=== PATIENT | female | born 2000 | race Hispanic/Latino ===

== ENCOUNTER → 2023-08-08 12:27 | Outpatient (CLI) | payer OTHER, SELFPAY ==
[2023-08-08 13:41] LABS: HCG Quantitative /Beta subunit 512.1 mIU/mL
== END ==
PROVIDERS: Referring Provider Student in an Organized Health Care Education/Training Program; Visit Provider Student in an Organized Health Care Education/Training Program
DX: O20.9 Hemorrhage in early pregnancy, unspecified (principal)
CPT/HCPCS: 36415; 84702

== ENCOUNTER → 2023-08-10 12:25 | Outpatient (CLI) | payer OTHER, SELFPAY ==
[2023-08-10 20:04] LABS: HCG Quantitative /Beta subunit 248.4 mIU/mL
== END ==
PROVIDERS: PCP Student in an Organized Health Care Education/Training Program; Referring Provider Student in an Organized Health Care Education/Training Program; Visit Provider Student in an Organized Health Care Education/Training Program
DX: O03.9 Complete or unspecified spontaneous abortion without complication (principal)
CPT/HCPCS: 36415; 84702

== ENCOUNTER → 2023-10-25 15:37 | Outpatient (CLI) | payer OTHER, SELFPAY ==
[2023-10-25 17:06] LABS: Add Manual Diff / Slide Review NO; Basophils Absolute Auto 0 /uL (0-100); Basophils Percent Auto 0.2 % (0-2); Eosinophils Absolute Auto 100 /uL (0-450); Eosinophils Percent Auto 1.7 % (2-4); Hematocrit 38.6 % (36-46); Hemoglobin 12.9 g/dL (12.0-16.0); Lymphocytes Absolute Auto 1700 /uL (1100-4500); Lymphocytes Percent Auto 19.8 % (25-40); Mean Corpuscular HGB Conc 33.3 % (30-36); Mean Corpuscular Volume 83.8 fL (80-100); Monocytes Absolute Auto 800 /uL (0-900); Monocytes Percent Auto 8.7 % (3-14); Neutrophils Absolute Auto 6100 /uL (1500-7000); Neutrophils Percent Auto 69.6 % (50-75); Platelet Count 283 X10^3/uL (150-400); Red Blood Cell Count 4.61 X10^6/uL (4.0-5.2); Red Cell Distribution Width 14.3 % (11.6-14.8); White Blood Cell Count 8.7 X10^3/uL (4.5-11.0)
[2023-10-26 17:42] LABS: Hepatitis B Surface Antigen NEGATIVE s/c (NEGATIVE); Rubella Antibody IgG 83.2 IU/mL (>15)
[2023-10-26 18:08] LABS: HIV 1 & 2 Ab/Ag 4th Gen Combo NEGATIVE (NEGATIVE); Hep C Virus Ab w/Reflex Quant NEGATIVE s/c (NEGATIVE)
[2023-10-27 03:26] LABS: RPR Screen Non Reactive (Non Reactive)
[2023-10-27 09:17] LABS: Varicella IgG Antibody 354 index (Immune >165)
== END ==
PROVIDERS: Referring Provider Student in an Organized Health Care Education/Training Program; Visit Provider Student in an Organized Health Care Education/Training Program
DX: Z34.80 Encounter for supervision of other normal pregnancy, unspecified trimester (principal)
CPT/HCPCS: 36415; 80055; 86787; 86803; 86850; 86900; 86901; 87086; 87389

== ENCOUNTER → 2023-12-21 11:57 | Outpatient (CLI) | payer OTHER, SELFPAY ==
[2023-12-23 20:47] LABS: AFP Value 42.4 ng/mL (.); Gest Age on Col Date 19.1 weeks (.); Insulin Dep Diabetes No (.); OSBR Risk 1IN 10000 (.); Results Report (.); Test Results *Screen Negative* (.)
== END ==
PROVIDERS: Referring Provider Student in an Organized Health Care Education/Training Program; Visit Provider Student in an Organized Health Care Education/Training Program
DX: Z34.02 Encounter for supervision of normal first pregnancy, second trimester (principal); Z3A.19 19 weeks gestation of pregnancy
CPT/HCPCS: 36415; 82105

== ENCOUNTER → 2024-01-01 12:16 | Outpatient (CLI) | payer OTHER, SELFPAY ==
--- NOTE | 2024-01-01 12:16 | DI.US.S_ITS ---
PROCEDURE: US OB >= 14 WEEKS FETUS INDICATIONS: 20 week anatomy OUTSIDE/PRIOR DATING DATA: Last menstrual period (LMP): 08/09/2023. LMP-based estimated date of delivery (JACKY): 05/15/2024. First dating scan (date and location): 10/25/2023. Estimated date of delivery (JACKY) from first dating scan: 05/22/2024. The calculations are made using the clinical JACKY of 05/15/2024. TECHNIQUE: Real-time scanning was performed of the fetus, with image documentation and biometric measurements. Endovaginal scanning: Not performed COMPARISON: [facility] [place], , OB <= 14 WEEKS FETUS, 10/25/2023, 15:21. FINDINGS: General: A single living intrauterine gestation is present. Presentation: Vertex. Placenta: Placental position is anterior , without previa. Amniotic fluid index: 13.1 cm, normal range is 5-24 cm. Single deepest vertical pocket is 4.5 cm. heart rate: 147 beats per minute. Maternal cervical canal: 4.0 cm long. Normal lower limit is 2.5 cm. biometrics: Biparietal diameter: 4.6 centimeters, 20 weeks 0 days Head circumference: 17.5 centimeters, 20 weeks 0 days Abdominal circumference: 14.3 centimeters, 19 weeks 5 days Femur length: 3.3 centimeters, 20 weeks 2 days Clinically estimated gestational age: 20 weeks 5 days Composite gestational age from present scan: 20 weeks 0 days Estimated weight and percentile: 322 grams, 12 percent Anatomic survey: Neuro: Ventricles are non-dilated at less than 10 mm. Cisterna magna is normal at 3-11 mm. Cerebellum is normal in size and morphology. Nuchal skin fold: Normal at less than 6 mm between 14-21 weeks gestational age. Face: Nose and lips, facial profile are normal. Spine: No evidence for spina bifida. Heart: 4-chambered heart is present, with normal ventricular outflow tracts. Diaphragm: Diaphragm is intact. Stomach: Left-sided stomach is present. Kidneys: No hydronephrosis. Normal is less than 5 mm in 2nd trimester, less than 7 mm in 3rd trimester. Cord: 3-vessel cord has orthotopic insertion. Bladder: Normal in size. Extremities: All 4 extremities identified. IMPRESSION: 1. Single live intrauterine consistent with 20 weeks and 0 days. 2. Normal anatomic survey. We strive to produce accurate, complete, and clear reports of imaging services. To assist us in improving patient care, this report was composed using standard report templates and voice recognition software. Therefore, it may contain abnormal punctuation, insertions and/or omissions. Occasional wrong-word or sound-alike substitutions may occur. Though we review the report and make efforts to correct it, we do recommend that the report be read carefully in proper context to recognize any text inaccuracies. Dictated by: Praneeth Colorado M.D. on 01/01/2024 at 15:07 Approved by: Praneeth Colorado M.D. on 01/01/2024 at 15:10
== END ==
PROVIDERS: Referring Provider Student in an Organized Health Care Education/Training Program; Visit Provider Student in an Organized Health Care Education/Training Program
DX: Z34.82 Encounter for supervision of other normal pregnancy, second trimester (principal); Z3A.20 20 weeks gestation of pregnancy
CPT/HCPCS: 76811

== ENCOUNTER → 2024-02-22 10:49 | Outpatient (CLI) | payer OTHER, SELFPAY ==
[2024-02-22 13:22] LABS: Hemoglobin 11.2 g/dL (12.0-16.0)
[2024-02-22 13:48] LABS: GTT (PREG) 1 Hour PP 50gm Dose 139 mg/dL (76-139)
== END ==
LOC: LAB 10:50
PROVIDERS: Referring Provider Physician Assistant Medical; Visit Provider Physician Assistant Medical
DX: Z34.82 Encounter for supervision of other normal pregnancy, second trimester (principal); Z3A.26 26 weeks gestation of pregnancy
CPT/HCPCS: 82950; 85014; 85018

== ENCOUNTER → 2024-03-25 11:23 | Outpatient (CLI) | payer OTHER, SELFPAY ==
--- NOTE | 2024-03-25 11:24 | DI.US.S_ITS ---
PROCEDURE: US OB FOLLOW UP INDICATIONS: EFW 12%ile on anatomy, follow-up growth OUTSIDE/PRIOR DATING DATA: Last menstrual period (LMP): 08/09/2023. LMP-based estimated date of delivery (JACKY): 05/15/2024 First dating scan (date and location): 10/25/2023 Estimated date of delivery (JACKY) from first dating scan: 05/22/2024 TECHNIQUE: Real-time scanning was performed of the fetus, with image documentation. COMPARISON: [facility], , US OB >= 14 WEEKS FETUS, 01/01/2024, 12:28. , US OB <= 14 WEEKS FETUS, 10/25/2023, 15:21. FINDINGS: A single living intrauterine gestation is present. Presentation: Vertex. Placenta: Placental position is anterior, without previa. Amniotic fluid index: 7.8 cm, normal range is 5-24 cm. Single deepest vertical pocket is 3.3 cm. heart rate: 150 beats per minute. Maternal cervical canal: 4.1 cm long. Normal lower limit is 2.5 cm. Clinically estimated gestational age: 32 weeks 5 days Estimated gestational age from today: 33 weeks 2 days Estimated weight: 2236 g, 69th percentile HC: 8.0 cm 32 weeks 2 days AC: 30.2 cm 33 weeks 4 days AC: 30.6 cm 34 weeks 4 days FL: 6.3 cm 32 weeks 3 days. IMPRESSION: Single live intrauterine with gestational age today 33 weeks 2 days. Dictated by: Omaira Olivares M.D. on 03/25/2024 at 22:49 Approved by: Omaira Olivares M.D. on 03/25/2024 at 22:52
== END ==
PROVIDERS: Referring Provider Student in an Organized Health Care Education/Training Program; Visit Provider Student in an Organized Health Care Education/Training Program
DX: Z3A.33 33 weeks gestation of pregnancy (principal); Z36.2 Encounter for other antenatal screening follow-up
CPT/HCPCS: 76816

== ENCOUNTER → 2024-04-18 10:19 | Outpatient (CLI) | payer OTHER, SELFPAY ==
[2024-04-19 15:47] LABS: Strep Grp B PCR NEG for Grp B Strep
== END ==
PROVIDERS: Referring Provider Student in an Organized Health Care Education/Training Program; Visit Provider Student in an Organized Health Care Education/Training Program
DX: Z36.85 Encounter for antenatal screening for Streptococcus B (principal)
CPT/HCPCS: 87653

== ENCOUNTER 2024-05-17 00:24 | Outpatient (CLI) | payer OTHER, SELFPAY | END 2024-05-17 01:11 | disposition home or self-care (01) | LOC: LABOR 00:33 → OB 05-20 13:03 | PROVIDERS: Referring Provider Family Medicine; Visit Provider Family Medicine | DX: O47.1 False labor at or after 37 completed weeks of gestation (principal); Z3A.40 40 weeks gestation of pregnancy | CPT/HCPCS: 59025; G0378; G0379 ==

== ENCOUNTER 2024-05-17 11:59 | Observation (INO) | payer OTHER, SELFPAY ==
[2024-05-17 12:50] LABS: Creatinine Urine Random 119.27 mg/dL; Protein (Total) Urine Random 25 mg/dL (0-12)
[2024-05-17 13:00] LABS: Add Manual Diff / Slide Review NO; Basophils Absolute Auto 0 /uL (0-100); Basophils Percent Auto 0.2 % (0-2); Eosinophils Absolute Auto 100 /uL (0-450); Eosinophils Percent Auto 1.2 % (2-4); Hematocrit 34.6 % (36-46); Hemoglobin 11.3 g/dL (12.0-16.0); Lymphocytes Absolute Auto 1200 /uL (1100-4500); Lymphocytes Percent Auto 15.3 % (25-40); Mean Corpuscular HGB Conc 32.7 % (30-36); Mean Corpuscular Hemoglobin 26.4 PG (26-34); Mean Corpuscular Volume 80.9 fL (80-100); Monocytes Absolute Auto 800 /uL (0-900); Monocytes Percent Auto 10.4 % (3-14); Neutrophils Absolute Auto 5600 /uL (1500-7000); Neutrophils Percent Auto 72.9 % (50-75); Platelet Count 237 X10^3/uL (150-400); Red Blood Cell Count 4.28 X10^6/uL (4.0-5.2); Red Cell Distribution Width 15.7 % (11.6-14.8); White Blood Cell Count 7.6 X10^3/uL (4.5-11.0)
[2024-05-17 13:15] LABS: Alanine Aminotransferase 21 IU/L (<35); Albumin 3.5 g/dL (3.5-5.0); Albumin Globulin Ratio 1.2 (1.0-2.8); Alkaline Phosphatase 183 U/L (38-126); Aspartate Aminotransferase 28 IU/L (14-36); BUN Creatinine Ratio 14.3 (6-22); Bilirubin Total 0.3 mg/dL (0.2-1.3); Blood Urea Nitrogen 7 mg/dL (7-17); Calcium 9.1 mg/dL (8.4-10.2); Carbon Dioxide 18 mmol/L (22-32); Chloride 109 mmol/L (98-107); Estimated Glomerular Filt Rate > 60 mL/min (>60); Globulin 2.9 g/dL (1.7-4.1); Glucose 98 mg/dL (70-100); HEMOLYSIS < 15 (0-50); Potassium 3.9 mmol/L (3.4-5.1); Sodium 135 mmol/L (137-145); Total Protein 6.4 g/dL (6.3-8.2)
--- NOTE | 2024-05-17 13:31 | PM.OBTRLD ---
Visit Information Visit Information Date of evaluation: 05/17/24 Primary OB Provider: Antonia Fuller Reason for Evaluation: Yes other Comments/Additional reasons for admission: 23yo at 40+2wks presenting to triage for r/o pre-eclampsia. She is asymptomatic, denies headaches, vision changes, right upper quadrant pain, chest pain, or shortness of breath. She is having some contractions, every 5min or so. Denies leaking fluid. Vital Signs Vital Signs: initial BP 146/100, all others within normal range (see OBIX) [facility] Medical History Spontaneous Surgical History [place] teeth extracted (~2018) Family History Grandmother Hypertension Grandmother Pre-diabetes Family/Other Diabetes mellitus Family/Other Diabetes mellitus Grandfather Pre-diabetes Social History marital status: number of children: 0 household members: spouse lives independently: Yes caregiver/support person: No housing: apartment pets and animals: Yes (2 dogs) education level: high school occupational status: employed current occupational exposures/hazards: Yes (avionics repair technician, lots of chemicals) special sindi needs: No travel history: recent (domestic only) seatbelt use: always helmet use: No (counseled) water heater temp set < 120 deg: Yes working smoke detector in home: Yes fire extinguisher in home: No carbon monox detector in home: Yes firearms in home: No do you feel safe at home: Yes Smoking Status: Never smoker second hand exposure: No alcohol intake: never substance use type: does not use during the past year weight has: other (fluctuated) well-balanced diet: daily or most days daily servings fruits/ve-4 caffeine: No Type(s) of exercise: aerobic frequency: 1-2 times per week additional social history: Denies any changes to [facility] since intake call in August. Review of Systems Review of Systems ROS: Yes All systems reviewed with the patient and are negative except as otherwise documented Objective Labs 05/17/24 12:50 05/17/24 12:50 Labs: Laboratory Results - last 24 hr 05/17/24 05/17/24 12:05 12:50 WBC 7.6 RBC 4.28 Hgb 11.3 L Hct 34.6 L MCV 80.9 MCH 26.4 MCHC 32.7 RDW 15.7 H Plt Count 237 Neut % (Auto) 72.9 Lymph % (Auto) 15.3 L [place] % (Auto) 10.4 Eos % (Auto) 1.2 L Baso % (Auto) 0.2 Neut # (Auto) 5600 Lymph # (Auto) 1200 [place] # (Auto) 800 Eos # (Auto) 100 Baso # (Auto) 0 Sodium 135 L Potassium 3.9 Chloride 109 H Carbon Dioxide 18 L BUN 7 Creatinine 0.49 L Estimated GFR > 60 BUN/Creatinine Ratio 14.3 Glucose 98 Uric Acid 4.0 Calcium 9.1 Total Bilirubin 0.3 AST 28 ALT 21 Alkaline Phosphatase 183 H Total Protein 6.4 Albumin 3.5 Globulin 2.9 Albumin/Globulin Ratio 1.2 U Random Total Protein 25 H Urine Creatinine 119.27 Protein/Creatinin Ratio 0.20 Evaluation Evaluation Baseline heart rate: 150 Variability: Moderate (11-25) monitor accelerations: Present Monitor Decelerations: Absent Contraction Frequency (minutes): 5 Category of Tracing: Reactive Diagnosis, Plan/Disposition Final Diagnosis (1) Elevated blood pressure affecting in third trimester, antepartum: Status: Acute Plan/Disposition Plan: 23yo at 40+2wks with mild range blood pressures today, with no pre-e symptoms. Given that her blood pressures have not been 4hrs apart, and her labwork doesn't meet diagnostic criteria (urine p:c 0.2), will discharge to home with pre-e and labor precautions. -advised pt to come in tomorrow to the center for repeat NST, blood pressures, and labs at 10am; likely she will need induction of labor tomorrow, and location will be pending, as our center is currently on divert due to staffing issues -pt indicated understanding of precautions and plan OB Disposition: home
== END 2024-05-17 13:45 | disposition home or self-care (01) ==
PROVIDERS: Admitting Provider Student in an Organized Health Care Education/Training Program; Referring Provider Student in an Organized Health Care Education/Training Program; Visit Provider Student in an Organized Health Care Education/Training Program
DX: O26.893 Other specified pregnancy related conditions, third trimester (principal); R03.0 Elevated blood-pressure reading, without diagnosis of hypertension; Z3A.40 40 weeks gestation of pregnancy
CPT/HCPCS: 36415; 59025; 59050; 80053; 82570; 84156; 84550; 85025; G0378; G0379